=== PATIENT | male | born 1975 | race Caucasian/White ===

== ENCOUNTER 2020-05-15 08:13 | Day surgery (SDC) | payer BC ==
[2020-05-15] MEDS ORDERED: diphenhydrAMINE 50 MG/ML VIAL ONE (08:24)
[2020-05-15] MEDS ORDERED: Acetaminophen 500 MG TAB PO SCH (08:45)
[2020-05-15] MEDS ORDERED: diphenhydrAMINE 50 MG/ML VIAL IVP SCH (08:45)
[2020-05-15] MEDS ORDERED: BAMLANIVIMAB 700 MG in Sodium Chloride 0.9% 250 ML 250 ML IVPB SCH (08:45)
== END 2020-05-15 11:00 | disposition home or self-care (01) ==
LOC: CSHSDC 08:13
PROVIDERS: ATTEND Family Medicine
DX: U07.1 COVID-19 (principal)
CPT/HCPCS: J1200

== ENCOUNTER 2020-06-19 09:27 | Outpatient (CLI) | payer BC | END 2020-06-19 09:28 | disposition home or self-care (01) | LOC: CSHULT 09:27 | PROVIDERS: ATTEND Family Medicine | DX: I07.1 Rheumatic tricuspid insufficiency (principal) | CPT/HCPCS: 93306 ==

== ENCOUNTER 2022-10-04 15:03 | Outpatient (CLI) | payer BC | END 2022-10-04 15:04 | disposition home or self-care (01) | LOC: CSHMRI 15:03 | PROVIDERS: ATTEND Family Medicine | DX: M25.522 Pain in left elbow (principal); S56.512A Strain of other extensor muscle, fascia and tendon at forearm level, left arm, initial encounter ==

== ENCOUNTER 2024-11-08 17:37 | Outpatient (CLI) | payer BC | END 2024-11-08 17:38 | disposition home or self-care (01) | LOC: CSHRAD 17:37 | PROVIDERS: ATTEND Family Medicine | DX: M47.26 Other spondylosis with radiculopathy, lumbar region (principal); M47.27 Other spondylosis with radiculopathy, lumbosacral region | CPT/HCPCS: 72120 ==